=== PATIENT | female | born 1960 | race Caucasian/White ===

== ENCOUNTER 2019-12-24 22:30 | Emergency (ER) | payer OTHER, SELFPAY ==
[2019-12-24 22:36] VITALS: BP 174/98; PULSE 123; RESP 13; TEMP 36.8; O2SAT 100
--- NOTE | 2019-12-24 22:54 | ECG_ITS ---
Measurements Intervals [place] Rate: 125 P: 66 NV: 160 QRS: 19 QRSD: 86 T: 45 QT: 288 QTc: 415 Interpretive Statements SINUS TACHYCARDIA ABNORMAL ECG Electronically Signed On 12-25-2019 8:23:51 CDT by Malcolm Carlos D.O.
[2019-12-24 23:09] LABS: Basophils Percent Auto 0.5 % (0.2-1.2); Eosinophils Absolute Auto 0.1 K/mm3 (0-0.3); Eosinophils Percent Auto 1.1 % (0-4.4); Hemoglobin 13.5 g/dL (12.0-15.0); Immature Granulocyte Absolute 0.03 K/mm3 (0.00-0.031); Immature Granulocyte Percent A 0.3 % (0-0.5); Lymphocytes Absolute Auto 2.95 K/mm3 (0.9-3.2); Lymphocytes Percent Auto 33.4 % (18.3-44.2); Mean Corpuscular HGB Conc 32.1 g/dl (32-36); Mean Corpuscular Hemoglobin 29.7 pg (26-34); Mean Corpuscular Volume 92.3 fl (80-100); Mean Platelet Volume 10.3 fl (7.4-10.4); Monocytes Absolute Auto 0.6 K/mm3 (0.1-0.6); Monocytes Percent Auto 6.7 % (2.6-8.5); Neutrophils Absolute Auto 5.1 K/mm3 (1.3-6.7); Platelet Count Result 245 k/mm3 (150-375); Red Blood Count 4.55 M/mm3 (4.2-5.4); Red Cell Distribution Width 12.4 % (11.5-14.5); White Blood Count 8.8 K/mm3 (4.5-10.0)
--- NOTE | 2019-12-24 23:22 | ED.DIZZY ---
HPI - Dizziness General Chief Complaint: Dizziness Stated Complaint: Dizzy, Elevated pulse Time Seen by Provider: 12/24/19 23:17 Source: patient and RN notes reviewed Mode of arrival: ambulatory Limitations: no limitations History of Present Illness HPI Narrative: A 59 y/o female presents to the ED from upstairs with intermittent dizziness beginning roughly 30 minutes [employer]. She states that she was sitting down working when she began to have palpitations and she became dizzy. She reports that she took her HR two separate times and it was 120 BPM and then 150 BPM. She notes that she began to feel faint and foggy , so she decided to comedown to the ED to be evaluated. She also notes that she has a hx of HTN but denies being compliant with her medication. She also denies any CP, SOB, leg edema, calf pain, decreased intake, cough, N/V, or fevers. MD elicited complaint: dizziness Onset (ago): minute(s) (30) Timing: intermittent Associated symptoms: palpatations and other (feeling faint and foggy ) Review of Systems Review of Systems: All systems reviewed & are unremarkable except as noted in HPI and below Constitutional: Constitutional: Denies fever(s) and Denies poor appetite Cardiovascular: Cardiovascular: Denies chest pain, Denies leg edema and Reports palpitations Respiratory: Respiratory: Denies cough and Denies dyspnea Gastrointestinal: Gastrointestinal: Denies nausea and Denies vomiting Musculoskeletal: Musculoskeletal: Denies other (calf pain) Neurologic: Reports dizziness and Reports other (feeling faint and foggy ) PMFSH Past Medical History Medical History (Updated 12/25/19 @ 01:34 by Pranav Martinez MD) H/O: HTN (hypertension) Medical history unknown Surgical History Surgical History (Updated 12/25/19 @ 00:41 by Moe Carney) Surgical history unknown Social History Social History Smoking status: Never smoker Alcohol intake: never Exam Const: General: healthy appearing and no acute distress Nutritional Appearance: well nourished HENMT: Mouth: Yes lip normal and Yes moist mucous membranes Eyes: Conjunctivae: conjunctivae normal Pupils: Equal, round and reactive pupils present Resp: Effort & Inspection: normal respiratory effort Auscultation: clear to auscultation bilaterally Cardio: Rate: regular rate Rhythm: regular rhythm Heart sounds: no murmurs GI: GI Palp: No abdominal tenderness and Yes Soft to palpation Auscultation: normal bowel sounds Back/Spine/Pelvis: Other: Full ROM. Skin: General skin exam: normal color, dry skin and other (warm) Neuro: General: patient oriented x3 (alert) Speech: normal speech Extrem: General: full ROM Psych: Mental Status: mental status grossly normal Affect: normal affect Course Vital Signs Vital signs: Vital Signs Temperature 36.8 C 12/24/19 22:36 Pulse Rate 123 H 12/24/19 22:36 Respiratory Rate 13 12/24/19 22:36 Blood Pressure 174/98 H 12/24/19 22:36 Pulse Oximetry 100 12/24/19 22:36 Temperature 36.8 C 12/24/19 22:36 Pulse Rate 96 12/25/19 01:49 Respiratory Rate 26 H 12/25/19 01:49 Blood Pressure 150/89 H 12/25/19 01:49 Pulse Oximetry 97 12/25/19 01:49 MDM - Dizziness MDM Narrative Medical decision making narrative: History sounds most consistent with panic attack. She has no CP, dyspnea, fever, or any other particularly concerning symptoms. Labs reassuring. EKG shows sinus tahcycardia. Medical Records Attestation: I reviewed the patient's medical records. Lab Data Attestation: I reviewed the patient's lab results. Result diagrams: 12/24/19 23:00 12/24/19 23:00 Labs: Lab Results 12/24/19 12/24/19 Range/Units 23:00 23:00 WBC 8.8 (4.5-10.0) K/mm3 RBC 4.55 (4.2-5.4) M/mm3 Hgb 13.5 (12.0-15.0) g/dL Hct 42.0 (37.0-47.0) % MCV 92.3 (80-100) fl MCH 29.7 (26-34) pg MCHC 32.1 (32-36) g/dl
[2019-12-24 23:24] LABS: Blood Urea Nitrogen 10 mg/dL (7-17); Calcium 8.8 mg/dL (8.4-10.2); Carbon Dioxide 24 mmol/L (22-30); Chloride 103 mmol/L (98-107); Estimated Glomerular Filt Rate > 60; Glucose 114 mg/dL (65-105); Potassium 3.5 mmol/L (3.4-5.0); Sodium 137 mmol/L (137-145)
[2019-12-24 23:42] VITALS: BP 157/103; PULSE 101; RESP 12; O2SAT 99
[2019-12-24 23:52] VITALS: BP 141/87; BP 143/81; BP 161/94; PULSE 103; PULSE 111; PULSE 97
[2019-12-25 01:01] VITALS: BP 140/85; PULSE 100; RESP 18; O2SAT 99
[2019-12-25 01:17] VITALS: BP 153/94; PULSE 81; RESP 14; O2SAT 97
[2019-12-25] MEDS: SODIUM CHLORIDE 0.9% IV 500 ML 999 ML IV CONT (01:17)
[2019-12-25 01:49] VITALS: BP 150/89; PULSE 96; RESP 26; O2SAT 97
== END 2019-12-25 01:45 | disposition home or self-care (01) ==
PROVIDERS: Emergency Provider Emergency Medicine; PCP Internal Medicine
DX: R55 Syncope and collapse (principal); I10 Essential (primary) hypertension; R00.0 Tachycardia, unspecified
CPT/HCPCS: 36415; 80048; 81025; 85025; 93005; 96360; 99284; J7040